=== PATIENT | male | born 2000 | race Caucasian/White ===

== ENCOUNTER 2019-10-19 20:42 | Emergency (ER) | payer OTHER ==
[~2019-10-19] VITALS: Ht 170.2 cm; Wt 81.6 kg
[2019-10-19 20:46] VITALS: BP 135/100
--- NOTE | 2019-10-19 20:48 | NUR ---
PT IN [place]
--- NOTE | 2019-10-19 21:05 | NUR ---
PT TAKEN TO XRAY
--- NOTE | 2019-10-19 21:11 | NUR ---
PT RETURN FROM XRAY
--- NOTE | 2019-10-19 21:20 | NUR ---
PT ASSESSED AND EVALUATED BY ETTA BENJAMIN.
[2019-10-19 21:30] VITALS: BP 135/100
--- NOTE | 2019-10-19 21:30 | NUR ---
PATIENT [facility]. PATIENT EXAMINED BY DR. BENJAMIN. PATIENT MEDICALLY CLEARED AND RELEASED IN CUSTODY IN STABLE CONDITION. ORIGINAL PRE-BOOK FORM GIVEN TO OFFICER Jerzy MCDUFFIE.
--- NOTE | 2019-10-19 21:30 | NUR ---
Patient discharged with v/s stable. Written and verbal after care instructions given and explained. Patient alert, oriented and verbalized understanding of instructions. Police, with in custody. All questions addressed prior to discharge. ID band removed. Patient advised to follow up with PMD. Rx of TYLENOL given. Patient educated on indication of medication including possible reaction and side effects. Opportunity to ask questions provided and answered.
== END 2019-10-19 21:30 ==
LOC: MED 20:42
DX: M54.9 Dorsalgia, unspecified (principal); Z02.89 Encounter for other administrative examinations; Z88.1 Allergy status to other antibiotic agents; V89.2XXA Person injured in unspecified motor-vehicle accident, traffic, initial encounter; Y93.89 Activity, other specified; Y92.89 Other specified places as the place of occurrence of the external cause; Y99.8 Other external cause status
CPT/HCPCS: 72072; 99283